=== PATIENT | female | born 1990 | race Caucasian/White ===

== ENCOUNTER 2016-11-09 22:05 | Emergency (ER) | payer BC ==
[2016-11-09] MEDS ORDERED: ONDANSETRON 4 MG TAB.RAPDIS PO ONE ×2 (22:15→22:37)
[2016-11-09 22:18] VITALS: BP 113/74
[2016-11-09] MEDS ORDERED: ONDANSETRON 4 MG TAB.RAPDIS ONE ×2 (22:18→22:39)
--- NOTE | 2016-11-09 22:21 | ERNOTE ---
Medical Problem HPI - Narrative Date of Service: 11/09/16 - General Chief Complaint: Nausea/Vomiting Time Seen by Provider: 11/09/16 22:15 Source: patient, RN notes reviewed - Immun/Allergies/Home Medications Immunizations: IMMUNIZATION HX Immunizations Up to Date Yes History of Influenza Vaccine No Hx Pneumococcal Vaccination No Allergies/Adverse Reactions: Allergies promethazine HCl [From Phenergan] Allergy (Severe, Verified 11/09/16 22:18) nausea, tightening of throat, decreased bp Home Medications: HOME MEDICATIONS Ondansetron HCl [Zofran] 4 - 8 mg PO Q4H PRN #20 tablet 11/09/16 [Last Taken Unknown] Pnv95/Iron Fum/Folic Acid [ Tablet] 1 each PO 11/09/16 [Last Taken Unknown] - History of Present History Narrative: This is a 26-year-old female who is at 24 weeks. She has had no hyperemesis gravidarum during this . The patient reports she has been having nausea and vomiting with mild epigastric discomfort for the last 2 hours. Of importance the patient's sister was recently with them. The sister was also recently with the patient's father. Father started having nausea vomiting and diarrhea approximately 12-24 hours ago. Sister does not have any symptoms that we are aware of at this time. Patient does not have any diarrhea. She says she has been unable to keep anything down for the last 2 hours, and is worried that her baby is going to have trouble. She has no other complaints such as exquisite tenderness, pain going over bumps, shortness of breath, chest pain, or any other complaints. Timing: constant Severity: moderate, severe Review of Systems - Review of Systems Constitutional: Present: no symptoms reported EYE: Present: no symptoms reported ENT: Present: no symptoms reported Respiratory: Present: no symptoms reported Cardiology: Present: no symptoms reported Gastrointestinal/Abdominal: Present: See HPI, nausea, vomiting Genitourinary: Present: no symptoms reported Musculoskeletal: Present: no symptoms reported Skin: Present: no symptoms reported Neurological: Present: no symptoms reported Psych: Present: no symptoms reported All Other Systems: All systems neg except as marked - Patient's Past Medical History Patient History - Medical: Other Patient History - Cardiac/Respiratory: Asthma Patient History - Cancer: No Hx of Cancer Patient History - Surgical Procedures: Other Patient History - Other: None - Social History Living Situations: spouse Abuse History: No History of abuse Psych History: No pertinent hx Smoking Status: Never smoker Alcohol Use: none Drug Use: none - Immunizations Immunizations Up to Date: Yes Hx Pneumococcal Vaccination: No History of Influenza Vaccine: No Physical Exam - Physical Exam General Appearance: Present: wd/wn, alert, no apparent distress Head Exam: Present: normal inspection, no evidence of injury Ears, Nose, Throat: Present: other - slightly dry membranes Neck: Present: normal inspection, nontender Respiratory: Present: no respiratory distress, normal breath sounds, no accessory muscle use, chest nontender, lungs clear Cardiovascular/Chest: Present: regular rate, rhythm, no murmur Gastrointestinal/Abdominal: Present: normal bowel sounds, nontender, nondistended, soft Back Exam: Present: normal inspection, normal range of motion, no CVA tenderness , no vertebral tenderness Extremity Exam: Present: normal inspection Neurological Exam: Present: alert, oriented, normal mood/affect Skin Exam: Present: normal color, warm/dry Lymphatic Exam: Present: no adenopathy ED Progress - Vital Signs Patient's Vital Signs:: I have reviewed the patient's vital signs. Vital Signs: Vital Signs 11/09/16 22:11 Temperature 36.0 C L Pulse Rate 103 H Respiratory 18 Rate Blood Pressure 113/74 O2 Sat by Pulse 97 Oximetry - Progress/Reassessment Chief Complaint: Nausea/Vomiting Plan - Plan Plan: The patient actually started having diarrhea shortly after her arrival here. She has gotten 8 mg of Zofran. She is keeping down small sips of fluids. I have counseled her to use frequent small amounts of fluid rather than large amounts. She has been made aware that her symptoms will likely continue for the next 12-24 hours. heart rate was 146 and steady. I've related to the patient that the fetus will receive enough fluid and that her body will suffer long before the fetus does. I discussed if she doesn't have urine output for 12 hours or if she is still having vomiting and diarrhea after 24 hours she should return. Certainly if she develops new worrisome symptoms such as fever or increased abdominal pain vaginal bleeding etc. she should return Departure - Departure Clinical Impression: Gastroenteritis Disposition: Home self-care Condition: Stable Instructions: Nausea, Adult Additional Instructions: As we have discussed, he will likely continue to have symptoms for up to 24 hours total. The nausea should gradually resolve over the next 6-10 hours. The diarrhea will take approximately 6-10 hours longer than that. Even take the prescribed Zofran to help with severe nausea and vomiting. He should have frequent small amounts of liquids. Clear liquids are the best. Certainly if you're continuing to have nausea and vomiting 24 hours after the start you should return to the ER. If you do not have any significant urine output for more than 12 hours she should return to the ER. Otherwise call your [facility] doctor and set up a follow-up appointment. Prescriptions: Ondansetron HCl [Zofran] 4 - 8 mg PO Q4H PRN #20 tablet PRN Reason: vomiting
== END 2016-11-09 23:35 | disposition home or self-care (01) ==
LOC: ER 22:05
DX: K52.9 Noninfective gastroenteritis and colitis, unspecified (principal); Z33.1 Pregnant state, incidental

== ENCOUNTER 2017-01-28 07:54 | Inpatient (IN) | payer BC ==
[2017-01-28] MEDS ORDERED: RINGER'S SOLUTION,LACTATED 1,000 ML IV ONE ×2 (09:30→10:18)
[2017-01-28] MEDS ORDERED: ceFAZolin SODIUM 1 GM VIAL IV ONE (09:35)
[2017-01-28] MEDS ORDERED: OXYTOCIN 20 UNITS in RINGER'S SOLUTION,LACTATED 1,000 ML IV ONE ×2 (09:45→10:45)
[2017-01-28 09:54] LABS: Hematocrit 35.5 % (37.0-47.0); Hemoglobin 12.3 gm/dL (12.5-16.0); Mean Cell Volume 86.4 fl (78-100); Mean Corpuscular Hemoglobin 29.9 pg (27-31); Mean Corpuscular Hgb Conc 34.6 g/dl (32-36); Mean Platelet Volume 11.3 fl (6.0-9.5); Neutrophil # 9.5 K/mm3 (1.3-6.0); Neutrophil % 63.3 % (42-75.0); Platelet Count 180 K/mm3 (150-450); Red Blood Count 4.11 M/mm3 (4.2-5.4); Red Cell Distribution Width 13.2 % (11.5-14.0); White Blood Count 15.1 K/mm3 (4.0-10.5)
[2017-01-28] MEDS ORDERED: ceFAZolin SODIUM/DEXTROSE,ISO 2 GM/50 ML BAG IV ONE (10:45)
[2017-01-28] MEDS ORDERED: diphenhydrAMINE HCL 50 MG/ML VIAL IV PRN (10:52)
[2017-01-28] MEDS ORDERED: ONDANSETRON HCL/PF 2 MG/ML VIAL IV PRN ×2 (10:52→11:42)
[2017-01-28] MEDS ORDERED: HYDROmorphone HCL 2 MG/ML VIAL IV PRN (10:52)
[2017-01-28] MEDS ORDERED: NALOXONE HCL 0.4 MG/ML VIAL IV PRN (10:52)
--- NOTE | 2017-01-28 10:57 | OR ---
Operative Report - Dictated Report Narrative: Indication: 26-year-old 1 para 0 at 35 5/7 weeks presented to office for routine visit after an ultrasound that morning revealed an 8 cm complex mass on the placenta near the umbilical cord. Patient was being hooked up for nonstress test in the office when heart tones were noted to be in the 80s and patient began having lower uterine tenderness vaginal bleeding associated with the deceleration. Status: Stat. called at 0924. Incision at 0936. at 0938. Pre Operative Diagnosis: 35 5/7 week intrauterine . 2 vessel cord. Placental abruption. Nonreassuring tracing Post Operative Diagnosis: Same. Procedure Preformed: Primary Low Transverse Section Surgeon: Paul Curran DO Dry Cell Tester: OR Staff Anesthesia: GENERAL ,TAP block Estimated Blood Loss: 1500 mL Urine Output: 50 mL Fluids Given: 2000 mL Drains: Esteban to gravity Surgical Complications: None Specimens: Placenta to pathology Findings: Female born at 0938 on 01/28/2016 with Apgars 7 and 8, weighing 2599 g in cephalic presentation. Normal uterus, tubes, ovaries. Large 10 cm clot attached to the uterus near the umbilicus. Technique: The patient was taken to the operating room and placed in dorsal supine position with a left lateral tilt. After adequate Gen. Anesthesia, esteban catheter insertion, and 2 g of Ancef given preoperatively, the abdominal cavity was entered via a modified Dick-Jones incision. A transverse incision was made in the lower uterine segment and extended laterally and upwardly with digital traction. Clear fluid was noted upon amniotomy. The was delivered easily and crying upon delivery. The cord was milked 4-5 times then clamped and cut. The was handed off to awaiting stiff leg operator. Cord gases were obtained. The placenta was allowed to deliver spontaneously. The uterus was cleared of clot and debris. Uterine incision was closed with 0 Vicryl using a running stitch. A second imbricating layer was placed. Excellent hemostasis was noted. Rolled laps were removed from the abdominal cavitiy. The peritoneum was closed with a running 3-0 Monocryl. The same suture was used to approximate the rectus and pyramidalis muscles. The fascia was closed with a running 0 Vicryl. The subcutaneous layer was closed with a running 3-0 Monocryl. The same suture was used to approximate the subdermal layer. The skin was closed with a running 4-0 Monocryl and Dermabond. Sponge, lap, needle, and instrument count were correct x 2. Disposition: The patient was transferred to post anesthesia care unit in good condition
--- NOTE | 2017-01-28 10:59 | OR ---
Anesthesia Procedure Note - Anesthesia Procedure Note Date of Service: 01/28/17 Narrative: Vital Signs - Last Taken Temp 36 C L 01/28/17 10:54 Pulse 56 L 01/28/17 10:54 Resp 20 01/28/17 10:54 BP 99/44 01/28/17 10:54 Pulse Ox 100 01/28/17 10:54 O2 Oxygen Delivery Method Room Air 01/28/17 10:58 ANESTHESIA PROCEDURE NOTE Date of Procedure: 01/28/2017. Time of procedure: 1045. Performed by: Tony Wynn CRNA Power Bender Operator: None. Preprocedure diagnosis: Stat . Post procedure diagnosis: Same. Procedure: Bilateral ultrasound-guided transversus abdominis plane block for postop analgesia. Indications: The patient is a 26 -year-old female post section. Findings: See below. Details of the procedure: ChloraPrep was used on the patient's abdomen and the procedure was performed under sterile technique. The right abdominal fascial layer between the internal oblique muscle and the transversus abdominis muscles was identified under ultrasound guidance. A 21-gauge 4 inch block needle was inserted under ultrasound guidance to the target fascial plane. 15 mL's of 0.5 % bupivacaine plus epinephrine 1:200,000 was injected after negative aspiration for blood. The needle was removed intact and the procedure was then repeated at the left side. No complications were noted. The images were retained in the hospital medical database . EBL: Minimal. Fluids: N/A. Specimen: N/A. Post procedure condition: The patient tolerated the procedure well. No complications were noted. Thank you for this consultation. Tony Wynn CRNA
[2017-01-28 11:28] LABS: Albumin * 2.4 gm/dl (3.4-5.0); Anion Gap 14.9 mmol/L (6.8-13.8); BUN/Creatinine Ratio 15.3 (9.0-21.6); Bilirubin, Total 0.1 mg/dL (0.0-1.1); Ca. Corrected For Albumin 8.9 mg/dL (8.4-10.2); Calcium * 7.9 mg/dL (7.9-10.9); Carbon Dioxide 20.8 mmol/L (24-32.6); Potassium 3.7 mmol/L (3.4-4.6); Total Protein 5.9 gm/dL (6.2-8.2)
[2017-01-28] MEDS ORDERED: DEXTROSE 5%-LACTATED RINGERS 1,000 ML IV PRN (11:42)
[2017-01-28] MEDS ORDERED: BISACODYL 10 MG SUPP.RECT RC PRN (11:42)
[2017-01-28] MEDS ORDERED: SENNOSIDES 8.6 MG TABLET PO PRN (11:42)
[2017-01-28] MEDS ORDERED: SIMETHICONE 80 MG TAB.CHEW PO PRN (11:42)
[2017-01-28] MEDS: oxyCODONE HCL/ACETAMINOPHEN 1 TAB TABLET PO PRN ×3 (12:34→21:07)
[2017-01-28] MEDS: IBUPROFEN 800 MG TABLET PO PRN ×2 (12:34→19:19)
[2017-01-28] MEDS ORDERED: RHO(D) IMMUNE GLOBULIN 300 MCG DISP.SYRIN IM ONE (13:18)
[2017-01-28] MEDS: ENOXAPARIN SODIUM 40 MG/0.4 ML SYRG SC SCH (21:07)
[2017-01-28] MEDS: DOCUSATE SODIUM 100 MG CAPSULE PO SCH (21:07)
[2017-01-29] MEDS: oxyCODONE HCL/ACETAMINOPHEN 1 TAB TABLET PO PRN ×6 (00:49→22:20)
[2017-01-29] MEDS: IBUPROFEN 800 MG TABLET PO PRN ×3 (02:08→18:33)
[2017-01-29] MEDS: DOCUSATE SODIUM 100 MG CAPSULE PO SCH ×2 (08:19→20:27)
[2017-01-29] MEDS: ENOXAPARIN SODIUM 40 MG/0.4 ML SYRG SC SCH (20:27)
--- NOTE | 2017-01-29 23:17 | PN ---
Subjective - Date and Time Seen Date: 01/29/17 Time: 23:14 - Seen at 0830 Subjective Narrative: Pain well controlled. Ambulating, urinating, eating without difficulty. No flatus yet Objective - Review of Systems Generalized/Overall Review: Reports: No Symptoms Reported EENTM: Reports: No Symptoms Reported Respiratory: Reports: No Symptoms Reported Cardiac: Reports: No Symptoms Reported Abdominal: Reports: Abdominal Pain - approriate Genitourinary Symptoms: Reports: No Symptoms Reported Musculoskeletal Complaints: Reports: No Symptoms Reported Neurological: Reports: No Symptoms Reported Skin: Reports: No Symptoms Reported Endocrine: Reports: No Symptoms Reported - Vitals Vitals: Last Vital Signs Temp 36.5 C 01/29/17 18:38 Pulse 76 01/29/17 18:38 Resp 18 01/29/17 18:38 BP 142/80 01/29/17 18:38 Pulse Ox 97 01/29/17 18:38 - Abnormal Lab Findings Abnormal Lab Findings: Abnormal Lab Results 01/28/17 Range/Units 09:45 Crossmatch See Detail - Exam Constitutional: Present: Alert, Oriented x3, Cooperative, No distress Respiratory: Present: no respiratory distress Cardiovascular/Chest: Present: normal peripheral pulses, regular rate, rhythm, edema - 1+ pitting edema Abdomen: Present: soft, no rebound tenderness, other - incision - clean, dry, intact /Rectal: Present: Exam deferred Extremity: Present: non-tender, no calf tenderness, lower extremity edema Skin Exam: Present: normal color, warm/dry, no cyanosis Neurologic: Present: normal mood/affect Appearance: Present: appropriate appearance, appropriate insight Eye contact: Present: cooperative, good eye contact Cauti Physician Documentation - Urinary Catheter Management Urethral (Mejia) Date of Insertion: 01/28/17 Time of Insertion: 09:30 Assessment/Plan - Problems/Diagnosis (1) Delivery by emergency section Problem: Acute Narrative: Routine PP care (2) Placenta abruption, delivered, current hospitalization Problem: Resolved Narrative: Hemodynamically stable. Observe for now.
[2017-01-30] MEDS: oxyCODONE HCL/ACETAMINOPHEN 1 TAB TABLET PO PRN ×4 (03:54→18:52)
[2017-01-30] MEDS: IBUPROFEN 800 MG TABLET PO PRN ×3 (03:55→17:01)
[2017-01-30] MEDS ORDERED: FLU VACC QS2017-18(6MOS UP)/PF 60 MCG/0.5 ML SYRINGE IM ONE (09:00)
[2017-01-30] MEDS: DOCUSATE SODIUM 100 MG CAPSULE PO SCH ×2 (09:55→21:41)
--- NOTE | 2017-01-30 16:27 | PN ---
Subjective - Date and Time Seen Date: 01/30/17 Time: 16:26 Objective - Vitals Vitals: Last Vital Signs Temp 36.9 C 01/30/17 08:02 Pulse 78 01/30/17 08:02 Resp 18 01/30/17 08:02 BP 136/79 01/30/17 08:02 Pulse Ox 99 01/30/17 08:02 Patient denies complaints. Ambulating well. Tolerating regular diet. Pain well controlled. Lochia wnl. Abdomen - soft, appropriately tender Incision - clean, dry, intact Uterus - firm, at umbilicus -2 No calf tenderness Impression: Post op day #2 s/p primary stat section for placental abruption with nonreassuring heart tracing. Gestational hypertension. Plan: Continue routine post-operative/ care Cauti Physician Documentation - Urinary Catheter Management Urethral (Mejia) Date of Insertion: 01/28/17 Time of Insertion: 09:30 Assessment/Plan - Problems/Diagnosis (1) Delivery by emergency section Problem: Acute (2) Placenta abruption, delivered, current hospitalization Problem: Resolved
[2017-01-30] MEDS: ENOXAPARIN SODIUM 40 MG/0.4 ML SYRG SC SCH (21:41)
[2017-01-31] MEDS: IBUPROFEN 800 MG TABLET PO PRN ×2 (02:28→08:36)
[2017-01-31] MEDS: oxyCODONE HCL/ACETAMINOPHEN 1 TAB TABLET PO PRN ×3 (02:29→12:55)
[2017-01-31 07:08] VITALS: BP 136/80
--- NOTE | 2017-01-31 08:40 | PN ---
Subjective - Date and Time Seen Date: 01/31/17 Time: 08:38 Objective - Vitals Vitals: Last Vital Signs Temp 36.8 C 01/31/17 07:07 Pulse 64 01/31/17 07:07 Resp 16 01/31/17 07:07 BP 136/80 01/31/17 07:07 Pulse Ox 99 01/31/17 07:07 Patient denies complaints. Ambulating without difficulty. Tolerating regular diet. Pain well controlled. Lochia wnl. Abdomen - soft, appropriately tender Incision - clean, dry, intact Uterus - firm, at umbilicus -3 No calf tenderness Impression: Post op day #3 s/p primary stat section. Placental abruption. Gestational hypertension-resolved. Plan: Routine discharge instructions Cauti Physician Documentation - Urinary Catheter Management Urethral (Mejia) Date of Insertion: 01/28/17 Time of Insertion: 09:30 Assessment/Plan - Problems/Diagnosis (1) Delivery by emergency section Problem: Acute (2) Placenta abruption, delivered, current hospitalization Problem: Resolved
[2017-01-31] MEDS: DOCUSATE SODIUM 100 MG CAPSULE PO SCH (12:55)
== END 2017-01-31 14:45 | disposition home or self-care (01) | DRG 766 ==
LOC: RAD 07:54 → OB 09:41
PROVIDERS: ADMIT Obstetrics & Gynecology; ATTEND Obstetrics & Gynecology
PROC: 10D00Z1 Extraction of Products of Conception, Low, Open Approach (ICD-10-PCS; principal; 2017-01-28 10:00)
DX: O45.93 Premature separation of placenta, unspecified, third trimester (principal); O76 Abnormality in fetal heart rate and rhythm complicating labor and delivery; O13.4 Gestational [pregnancy-induced] hypertension without significant proteinuria, complicating childbirth; Z3A.36 36 weeks gestation of pregnancy; Z37.0 Single live birth; Z23 Encounter for immunization
CPT/HCPCS: 36415; 59025; 59510; 76816; 80053; 85025; 85460; 86850; 86870; 86900; 88307; 90686; G0008; J2405; J2790

== ENCOUNTER 2018-12-10 04:58 | Inpatient (IN) ==
[2018-12-10] MEDS ORDERED: RINGER'S SOLUTION,LACTATED 1,000 ML IV PRN ×2 (05:10)
[2018-12-10] MEDS ORDERED: OXYTOCIN 20 UNITS in RINGER'S SOLUTION,LACTATED 1,000 ML IV ONE ×2 (05:10→09:03)
[2018-12-10] MEDS ORDERED: ceFAZolin SODIUM/DEXTROSE,ISO 2 GM/50 ML BAG IV ONE (05:10)
[2018-12-10 05:25] LABS: Hematocrit 36.5 % (37.0-47.0); Mean Cell Volume 86.5 fl (78-100); Mean Corpuscular Hemoglobin 28.4 pg (27-31); Mean Corpuscular Hgb Conc 32.9 g/dl (32-36); Mean Platelet Volume 11.2 fl (8-12.5); Neutrophil # 5.9 K/mm3 (1.3-6.0); Neutrophil % 68.1 % (42-75.0); Platelet Count 197 K/mm3 (150-450); Red Blood Count 4.22 M/mm3 (4.2-5.4); Red Cell Distribution Width 14.5 % (11.5-14.0); White Blood Count 8.6 K/mm3 (4.0-10.5)
[2018-12-10 07:29] LABS: Cocaine Ur Negative (NEGATIVE); Urine Barbiturate Negative (NEGATIVE); Urine Benzodiazepines Negative (NEGATIVE); Urine Opiates Negative (NEGATIVE); Urine PCP Negative (NEGATIVE); Urine THC Negative (NEGATIVE)
--- NOTE | 2018-12-10 07:32 | ANES ---
Anesthesia Pre Procedure Eval HOME MEDICATIONS Vits96/Iron Fum/Folic [ S] 1 tab PO DAILY 11/10/18 [Last Taken Unknown] Allergies/Adverse Reactions: Allergies Allergy/AdvReac Type Severity Reaction Status Date / Time promethazine HCl Allergy Severe nausea, Verified 12/08/18 15:32 [From Phenergan] tightening of throat, decreased bp - Planned Procedure Planned Procedure: Repeat , poss. Abdominal Scar Revision Medication List Reviewed:: Yes Allergies Verified: Yes Medical History (Updated 11/10/18 @ 12:39 by Yaron Curran DO) Chronic eczema (Chronic) History of placental abruption (Chronic) , spontaneous Onset Date: 02/01/16 Abruptio placenta Onset Date: 01/28/17 delivered @ 35 wks Acne Onset Date: Unknown Asthma, exercise induced Onset Date: Unknown [employer] Buckle fracture of distal end of right radius Onset Date: Unknown right in 3rd grade Eczema Onset Date: Unknown Menorrhagia Onset Date: 02/08/15 Premature delivery Onset Date: 01/28/17 @ 35 wks-placental abruption Steele teeth extracted Onset Date: 2009 Surgical History (Updated 12/08/18 @ 15:48 by Miri Ngo MD) Previous section (Chronic) Proceed with repeat delivery at 39 weeks. SROM and labor precautions. H/O section Onset Date: 01/28/17 STAT d/t placental abruption, non reassuring tracing. H/O colonoscopy Onset Date: 05/17/15 Tinguely-negative. Recheck 5 yrs. Family History (Updated 12/31/17 @ 07:09 by Carolina Vazquez) Mother Hypertension Ovarian cyst Father Hypertension Brother Cancer cancerous colon polyp DVT (deep venous thrombosis) Juvenile glaucoma Grandfather Diabetes Cancer prostate Grandfather Diabetes Cancer prostate Grandmother Cancer leukemia Hypertension Hypercholesteremia Osteoporosis Grandmother Cancer colon Hypertension DVT (deep venous thrombosis) - Family Anesthesia History Family History:: no untoward family reactions to anesthesia - Airway/Neck/Teeth Within Normal Limits:: Yes Teeth Condition: intact Neck Exam: full range of motion Mallampatti Score: 2 Thyromental (T-M) distance: > 6 cm Mandibulo Hyoid distance: > 3 cm - Respiratory Respiratory Physical: lungs clear Smoking Status: Never smoker Sleep Apnea currently treated: No Sleep Apnea by current assessment: No - Cardiovascular Tolerate Activity: Good Heart Sounds: S1 & S2, Regular - Anesthesia Assessment and Plan ASA Class: PS, II Anesthesia Type Plan: Spinal - bilat tap block
[2018-12-10] MEDS ORDERED: SENNOSIDES 8.6 MG TABLET PO PRN (09:03)
[2018-12-10] MEDS ORDERED: ONDANSETRON HCL/PF 2 MG/ML VIAL IV PRN (09:03)
[2018-12-10] MEDS ORDERED: KETOROLAC TROMETHAMINE 30 MG/ML VIAL IV PRN (09:03)
[2018-12-10] MEDS ORDERED: BISACODYL 10 MG SUPP.RECT RC PRN (09:03)
[2018-12-10] MEDS ORDERED: HYDROcodone/ACETAMINOPHEN 1 EACH TABLET PO PRN (09:03)
[2018-12-10] MEDS ORDERED: SIMETHICONE 80 MG TAB.CHEW PO PRN (09:03)
[2018-12-10] MEDS ORDERED: diphenhydrAMINE HCL 25 MG CAPSULE PO PRN (09:03)
--- NOTE | 2018-12-10 09:26 | ANES ---
Post Anesthesia Discharge - Transfer of Care Transfer of Care handoff given to nurse: Yes - Discharge from PACU Discharge from PACU when meets criteria: Yes
--- NOTE | 2018-12-10 09:34 | OR ---
Operative Report - Dictated Report Narrative: Date of delivery: 12/10/2018 Time of delivery: 813 Gender: male APGARS: 8/9 weight: 3926 grams Preoperative diagnosis: IUP @ 39w 0d, history of delivery Postoperative diagnosis: same Procedure: Repeat delivery Surgeon: Dr. Ngo Anesthesia: Spinal Anesthesiologist: Missael Zavala CRNA Description of the procedure: The patient was taken to the operating room where spinal anesthesia was induced. She was then prepped and draped in the lithotomy position in the standard surgical fashion. Attention was then turned to the abdominal scar. It appeared hypertrophic in some areas and with keloid formation in other areas. A scar revision was p erformed in the usual fashion. A segment of 19 cm of skin and scar was removed. The incision was carried through the subcutaneous tissue. The fascia was incised in the midline. The fascial incision was extended sharply. Bleeding was noted and it was controlled but there was quite a bit of bleeding. The fascia was grasped with Antonella clamps and dissected from the underlying rectus muscles. The rectus muscles were in the midline sharply due to scar tissue formation. The peritoneum was entered bluntly with good visualization of bowel and bladder. An Sánchez retractor was placed in the abdomen. The uterus was incised in the lower segment in the transverse fashion. The head was delivered. The rest of the infant was delivered atraumatically. The cord was clamped and cut and the infant was handed off to the attending pediatric staff. Cord blood was collected. The placenta was delivered by expression and appeared intact. The uterus was cleared of all clots and debris. The uterine incision was closed with 0-vicryl in a running, locking fashion. The uterine incision was inspected and it was hemostatic. The Sánchez retractor was removed from the abdomen. The fascia was inspected for hemostasis as were the rectus muscles. Several areas were made hemostatic. The fascia was closed with 1-0 vicryl. The subcutaneous tissue was copiously irrigated. The subcutaneous tissue space was closed with 2-0 vicryl. A second layer was placed as well. Additional hemostasis of the subcutaneous tissue was obtained with electrocautery. The skin was closed with 3-0 monocryl on a Buddy needle. [place] was placed over the incision. A pressure dressing was applied for additional hemostasis. All sponge, lap, and needle counts were correct. The patient tolerated the procedure well. She was transferred to the recovery room in stable condition. EBL: 1000 mL Complications: none Specimens: none History for MU Definition: * The number of deliveries resulting in a live the patient experienced prior to current hospitalization * The previous delivery of live twins or any live multiple gestation is considered one live event. *If primagravida or nulliparous is documented select zero for the number of previous live births. Live Events: 1
[2018-12-10 09:41] LABS: Albumin * 2.6 gm/dl (3.4-5.0); Anion Gap 15.7 mmol/L (6.8-13.8); BUN/Creatinine Ratio 9.5 (9.0-21.6); Bilirubin, Total 0.2 mg/dL (0.0-1.1); Ca. Corrected For Albumin 9.3 mg/dL (8.4-10.2); Calcium * 8.5 mg/dL (7.9-10.9); Carbon Dioxide 20.3 mmol/L (24-32.6); Total Protein 5.6 gm/dL (6.2-8.2)
[2018-12-10] MEDS: IBUPROFEN 800 MG TABLET PO PRN (10:00)
[2018-12-10] MEDS: HYDROcodone/ACETAMINOPHEN 1 EACH TABLET PO PRN ×5 (10:00→21:49)
--- NOTE | 2018-12-10 10:01 | ANES ---
Post Anesthesia Assessment - Vital Signs Vitals: Last Vital Signs Temp 36.2 C 12/10/18 09:40 Pulse 62 12/10/18 09:40 Resp 16 12/10/18 09:40 BP 139/76 12/10/18 09:40 Pulse Ox 100 12/10/18 09:40 Airway Patency: Normal - Mental Status Level Of Consciousness: Awake - Pain Level Pain Score: 2 - N/V Assessment Nausea/Vomiting Presence: None Dehydration:: No
--- NOTE | 2018-12-10 10:06 | ANES ---
Anesthesia Procedure Note Procedure Note: ANESTHESIA PROCEDURE NOTE Date of procedure: 12/10/2018. Time of procedure: 09 00. Performed by: Missael Zavala CRNA Child Psychometrist: Sue Ulrich RN . Preprocedure diagnosis: Status post section. Desire for postoperative analgesia. Post procedure diagnosis: Same. Procedure: Ultrasound-guided bilateral tap block Indications: Postoperative analgesia. Findings: Patient is brought to the PACU and placed in a supine position. Patient's lower right abdominal wall was prepped with ChloraPrep. Ultrasound was utilized to identify the fascial layer between the internal oblique and trans-abdominus muscles. A 20-gauge 4 inch regional block needle was advanced under ultrasound guidance until tip of needle was positioned just distal to fascial layer. 20 mL of 0.25% Marcaine with epinephrine 1-200 was injected with adequate spread of local anesthesia noted. Regional block needle was removed intact. Procedure was then repeated on patient's left side. A total of 40 mL of 0.25% Marcaine with epinephrine 1-200,000 was given. EBL: Minimal. Fluids: N/A. Specimen: N/A. Post procedure condition: The patient tolerated the procedure well. No complications were noted. Thank you for this consultation Missael Zavala CRNA
[2018-12-10] MEDS ORDERED: RHO(D) IMMUNE GLOBULIN 1,500 UNIT SYRINGE IM ONE ×2 (15:59→20:45)
[2018-12-10] MEDS: DOCUSATE SODIUM 100 MG CAPSULE PO SCH (20:29)
[2018-12-11] MEDS: HYDROcodone/ACETAMINOPHEN 1 EACH TABLET PO PRN ×4 (01:26→17:52)
[2018-12-11] MEDS: IBUPROFEN 800 MG TABLET PO PRN ×3 (01:26→17:52)
[2018-12-11 05:39] LABS: Hematocrit 31.7 % (37.0-47.0); Hemoglobin 10.2 gm/dL (12.5-16.0); Mean Cell Volume 88.5 fl (78-100); Mean Corpuscular Hemoglobin 28.5 pg (27-31); Mean Corpuscular Hgb Conc 32.2 g/dl (32-36); Mean Platelet Volume 11.1 fl (8-12.5); Neutrophil # 6.3 K/mm3 (1.3-6.0); Neutrophil % 73.8 % (42-75.0); Platelet Count 142 K/mm3 (150-450); Red Blood Count 3.58 M/mm3 (4.2-5.4); Red Cell Distribution Width 14.7 % (11.5-14.0); White Blood Count 8.5 K/mm3 (4.0-10.5)
--- NOTE | 2018-12-11 07:55 | PN ---
Subjective - Date and Time Seen Date: 12/11/18 Time: 07:53 Subjective Narrative: Patient without complaints Objective Objective Narrative: See vital signs - Review of Systems Generalized/Overall Review: Reports: No Symptoms Reported Misc: All systems neg except as marked - Vitals Vitals: Last Vital Signs Temp 36.5 C 12/11/18 06:54 Pulse 68 12/11/18 06:54 Resp 18 12/11/18 06:54 BP 121/88 12/11/18 06:54 Pulse Ox 98 12/11/18 06:54 - Abnormal Lab Findings Abnormal Lab Findings: Abnormal Lab Results 12/10/18 12/11/18 Range/Units Unknown 05:35 RBC 3.58 L (4.2-5.4) M/mm3 Hgb 10.2 L (12.5-16.0) gm/dL Hct 31.7 L (37.0-47.0) % RDW 14.7 H (11.5-14.0) % Plt Count 142 L (150-450) K/mm3 Immature Gran % (Auto) 0.80 H (0.001-0.429) % Immature Gran # (Auto) 0.07 H (0.000-0.0310) K/mm3 Lymphocytes % 15.2 L (20-51) % Neutrophils # 6.3 H (1.3-6.0) K/mm3 Lymphocytes # 1.29 L (1.5-3.5) k/mm3 Carbon Dioxide 20.3 L (24-32.6) mmol/L Anion Gap 15.7 H (6.8-13.8) mmol/L ALT 13 L (19-67) U/L Alkaline Phosphatase 182 H (50-170) U/L Total Protein 5.6 L (6.2-8.2) gm/dL Albumin 2.6 L (3.4-5.0) gm/dl - Exam Constitutional: Present: Alert, Oriented x3, Cooperative, No distress Abdomen: Present: soft, nontender, nondistended - dressing c/d/i Extremity: Present: non-tender, no calf tenderness Skin Exam: Present: normal color, warm/dry, no cyanosis Appearance: Present: appropriate appearance Eye contact: Present: cooperative Thoughts: Present: normal thought pattern Cauti Physician Documentation - Urinary Catheter Management Urethral (Mejia) Urethral Indwelling: No Date of Insertion: 12/10/18 Time of Insertion: 08:00 Date of Removal: 12/10/18 Time of Removal: 20:49 Assessment/Plan Plan Narrative: POD 1 s/p repeat delivery Doing well Discharge POD 3
[2018-12-11] MEDS: DOCUSATE SODIUM 100 MG CAPSULE PO SCH (09:05)
[2018-12-12] MEDS: DOCUSATE SODIUM 100 MG CAPSULE PO SCH ×4 (00:07→22:01)
[2018-12-12] MEDS: HYDROcodone/ACETAMINOPHEN 1 EACH TABLET PO PRN ×4 (00:07→22:01)
[2018-12-12] MEDS: IBUPROFEN 800 MG TABLET PO PRN ×4 (00:07→22:01)
--- NOTE | 2018-12-12 07:45 | PN ---
Subjective - Date and Time Seen Date: 12/12/18 Time: 07:43 Subjective Narrative: Patient without complaints Objective Objective Narrative: See vital signs - Review of Systems Generalized/Overall Review: Reports: No Symptoms Reported Misc: All systems neg except as marked - Vitals Vitals: Last Vital Signs Temp 36.8 C 12/11/18 16:15 Pulse 76 12/11/18 20:15 Resp 16 12/11/18 20:15 BP 126/83 12/11/18 20:15 Pulse Ox 98 12/11/18 20:15 - Exam Constitutional: Present: Alert, Oriented x3, Cooperative, No distress Abdomen: Present: soft, nontender, nondistended - incision c/d/i Extremity: Present: non-tender, no calf tenderness Skin Exam: Present: normal color, warm/dry, no cyanosis Appearance: Present: appropriate appearance Eye contact: Present: cooperative Thoughts: Present: normal thought pattern Cauti Physician Documentation - Urinary Catheter Management Urethral (Mejia) Urethral Indwelling: No Date of Insertion: 12/10/18 Time of Insertion: 08:00 Date of Removal: 12/10/18 Time of Removal: 20:49 Assessment/Plan Plan Narrative: POD 2 s/p delivery Doing well Discharge tomorrow
[2018-12-12 16:27] LABS: Hematocrit 35.4 % (37.0-47.0); Hemoglobin 11.4 gm/dL (12.5-16.0); Mean Cell Volume 89.2 fl (78-100); Mean Corpuscular Hemoglobin 28.7 pg (27-31); Mean Corpuscular Hgb Conc 32.2 g/dl (32-36); Mean Platelet Volume 10.6 fl (8-12.5); Neutrophil # 5.1 K/mm3 (1.3-6.0); Neutrophil % 74.2 % (42-75.0); Platelet Count 179 K/mm3 (150-450); Red Blood Count 3.97 M/mm3 (4.2-5.4); Red Cell Distribution Width 14.9 % (11.5-14.0); White Blood Count 6.9 K/mm3 (4.0-10.5)
[2018-12-12 16:40] LABS: Albumin * 2.2 gm/dl (3.4-5.0); Anion Gap 11.2 mmol/L (6.8-13.8); Bilirubin, Total 0.2 mg/dL (0.0-1.1); Ca. Corrected For Albumin 9.2 mg/dL (8.4-10.2); Calcium * 8.1 mg/dL (7.9-10.9); Carbon Dioxide 26.2 mmol/L (24-32.6); Potassium 3.4 mmol/L (3.4-4.6); Total Protein 5.8 gm/dL (6.2-8.2)
[2018-12-12 17:26] LABS: Random Urine Total Protein Less than 6.0 mg/dL (0-12)
[2018-12-12] MEDS ORDERED: HYDROCORTISONE 30 APPL TUBE TP PRN (21:23)
[2018-12-13] MEDS: IBUPROFEN 800 MG TABLET PO PRN (06:01)
--- NOTE | 2018-12-13 06:16 | PN ---
Subjective - Date and Time Seen Date: 12/13/18 Time: 06:14 Subjective Narrative: Patient without complaints Objective Objective Narrative: See vital signs - Review of Systems Generalized/Overall Review: Reports: No Symptoms Reported Misc: All systems neg except as marked - Vitals Vitals: Last Vital Signs Temp 36.8 C 12/12/18 15:07 Pulse 86 12/13/18 02:22 Resp 16 12/13/18 02:22 BP 126/73 12/13/18 02:22 Pulse Ox 99 12/13/18 02:22 - Abnormal Lab Findings Abnormal Lab Findings: Abnormal Lab Results 12/12/18 12/12/18 12/12/18 Range/Units 16:20 16:20 17:10 RBC 3.97 L (4.2-5.4) M/mm3 Hgb 11.4 L (12.5-16.0) gm/dL Hct 35.4 L (37.0-47.0) % RDW 14.9 H (11.5-14.0) % Immature Gran % (Auto) 1.00 H (0.001-0.429) % Immature Gran # (Auto) 0.07 H (0.000-0.0310) K/mm3 Lymphocytes % 14.1 L (20-51) % Lymphocytes # 0.97 L (1.5-3.5) k/mm3 Chloride 107 H (97-106) mmol/L ALT 15 L (19-67) U/L Total Protein 5.8 L (6.2-8.2) gm/dL Albumin 2.2 L (3.4-5.0) gm/dl Ur Random Creatinine 15.6 L (60-200) mg/dL U [place] Prot/Creat Ratio 385 H (0-199) mg/gm - Exam Constitutional: Present: Alert, Oriented x3, Cooperative, No distress Abdomen: Present: soft, nontender, nondistended - incision c/d/i Extremity: Present: non-tender, no calf tenderness Skin Exam: Present: normal color, warm/dry, no cyanosis Appearance: Present: appropriate appearance Eye contact: Present: cooperative Thoughts: Present: normal thought pattern Cauti Physician Documentation - Urinary Catheter Management Urethral (Mejia) Urethral Indwelling: No Date of Insertion: 12/10/18 Time of Insertion: 08:00 Date of Removal: 12/10/18 Time of Removal: 20:49 Assessment/Plan Plan Narrative: POD 3 s/p repeat delivery The patient had elevated BPs . UP:CR consistent with pre- eclampsia. Patient asymptomatic. Patient given severe pre-eclampsia precautions. BP check in the office in 1 week Pt doing well Discharge today
[2018-12-13 08:13] VITALS: BP 127/74
== END 2018-12-13 11:00 | disposition home or self-care (01) | DRG 788 ==
LOC: MS 04:58 → OB 12-12 18:21
PROVIDERS: ADMIT Obstetrics & Gynecology; ATTEND Obstetrics & Gynecology
CPT/HCPCS: 36415; 59025; 80053; 80307; 82570; 84155; 84156; 85025; 85460; 86850; 86870; J2790

== ENCOUNTER 2020-01-19 03:40 | Observation (INO) ==
[2020-01-19] MEDS ORDERED: AZITHROMYCIN 250 MG TABLET PO ONE (04:24)
[2020-01-19] MEDS ORDERED: AMPICILLIN SODIUM 2,000 MG in NORMAL SALINE 100 ML IV ONE (04:25)
[2020-01-19] MEDS ORDERED: BETAMETHASONE ACETATE,SOD PHOS 6 MG/ML VIAL IM ONE (04:26)
--- NOTE | 2020-01-19 04:43 | HP ---
Chief Complaint - Chief Complaint Date of Service: 01/19/20 Time of Service: 04:13 Chief Complaint: leakage of fluid History of Present Illness: 29 year old at 22w 6d who presents to labor and delivery after having 3 big gushes of fluid. The first big gush of fluid was at 0130. She denies any cramping, contractions or vaginal bleeding. She has not had consistent movement yet. Denies fever, chills, nausea, vomiting, and diarrhea. Medical History (Last Reviewed 01/19/20 @ 04:27 by Miri Ngo MD) Chronic eczema (Chronic) History of placental abruption (Chronic) , spontaneous Onset Date: 02/01/16 Abruptio placenta Onset Date: 01/28/17 delivered @ 35 wks Acne Onset Date: Unknown Asthma, exercise induced Onset Date: Unknown Elementary School Buckle fracture of distal end of right radius Onset Date: Unknown right in 3rd grade Eczema Onset Date: Unknown Menorrhagia Onset Date: 02/08/15 Premature delivery Onset Date: 01/28/17 @ 35 wks-placental abruption Surgical History: Surgical History (Last Reviewed 01/19/20 @ 04:27 by Miri Ngo MD) Previous section (Chronic) x2 H/O section Onset Date: 01/28/17 STAT d/t placental abruption, non reassuring tracing. H/O colonoscopy Onset Date: 05/17/15 Tinguely-negative. Recheck 5 yrs. [place] teeth extracted Onset Date: 2009 delivery delivered Onset Date: ~12/10/18 repeat Family History: Family History (Last Reviewed 01/19/20 @ 04:27 by Miri Ngo MD) Mother Hypertension Ovarian cyst Father Hypertension Brother Cancer cancerous colon polyp DVT (deep venous thrombosis) Juvenile glaucoma Grandfather Diabetes Cancer prostate Grandfather Diabetes Cancer prostate Grandmother Cancer leukemia Hypertension Hypercholesteremia Osteoporosis Grandmother Cancer colon Hypertension DVT (deep venous thrombosis) Social History: (Last Reviewed 01/19/20 @ 04:27 by Miri Ngo MD) Social History: adopted: No residential: No Marital status: household members: spouse, children number of children: 2 current occupational status: employed current occupation: Teacher current occupational exposures/hazards: No Highest education level completed: Master's degree Sexually Active: Yes Service: No Tobacco: Smoking Status: Never smoker Alcohol: alcohol intake: current alcohol intake frequency: a few times a month details: No alcohol since +UPT Substance Use: substance use type: does not use Dietary Habits: caffeine: Yes caffeine comment: 2/day Type: tea, coffee Exercise: Physical activity type: yoga frequency: 3-4 times per week Jenny/Hoahaoism: agree to transfusion: Yes Review Of Systems (GEN) - Review of Systems EENTM: Present: No Symptoms Reported Respiratory: Present: No Symptoms Reported Cardiac: Present: No Symptoms Reported Abdominal: Present: No Symptoms Reported Genitourinary: Present: Other - loss of fluid Musculoskeletal: Present: No Symptoms Reported Neurological: Present: No Symptoms Reported Skin: Present: No Symptoms Reported Endocrine: Present: No Symptoms Reported Immunizations: IMMUNIZATION HX Immunizations Up to Date Yes History of Influenza Vaccine Yes Hx Pneumococcal Vaccination No Allergies/Adverse Reactions: Allergies Allergy/AdvReac Type Severity Reaction Status Date / Time promethazine HCl Allergy Severe nausea, Verified 01/19/20 03:34 [From Phenergan] tightening of throat, decreased bp Home Medications: HOME MEDICATIONS Vits96/Iron Fum/Folic [ S] 1 tab PO DAILY 11/10/18 [Last Taken 01/17/20] Exam - Exam Vital Signs: 115/67 73 98% 36.4 Cel[place] 16 Constitutional: Present: Alert, Oriented x3, Cooperative, No distress ENT Exam: Present: hearing grossly normal Eye Exam: bilateral eye: normal inspection Neck: Present: normal inspection Back Exam: Present: normal inspection Breasts: Present: Exam deferred Respiratory: Present: lungs clear, normal breath sounds, no respiratory distress Cardiovascular/Chest: Present: regular rate, rhythm Abdomen: Present: soft, nontender, nondistended, no rebound tenderness Extremity: Present: non-tender, no calf tenderness Skin Exam: Present: normal color, warm/dry, no cyanosis Neurologic: Present: alert, normal mood/affect, oriented x 3 Appearance: Present: appropriate appearance, appropriate insight, neat, no memory impairment Eye contact: Present: cooperative, good eye contact, normal speech Thoughts: Present: normal thought pattern Assessment/Plan - Narrative Narrative: 29 year old at 22w 6d 1. PPROM, not in labor: a dose of betamethasone was administered. Zithromax 1 gram PO given. Ampicillin 2 grams IV every 6 hours. Bedside ultrasound shows breech presentation. GBS collected today. Patient transferred to [facility] to a higher level of care. NST is reactive, normal baseline, no decelerations, no contractions - Assessment/Plan (1) premature rupture of membranes (PPROM) with unknown onset of labor Problem: Acute (2) 22 weeks gestation of Problem: Acute (3) Previous section Problem: Chronic (4) History of placental abruption Problem: Chronic (5) Breech presentation Problem: Acute Qualifiers: Fetus number: single or unspecified fetus Qualified Code(s): O32.1XX0 - Maternal care for breech presentation, not applicable or unspecified
[2020-01-19 06:04] VITALS: BP 122/80
== END 2020-01-19 05:35 | disposition short-term general hospital (02) ==
LOC: INTOOBSV 03:41 → OB 03:41
PROVIDERS: ADMIT Obstetrics & Gynecology; ATTEND Obstetrics & Gynecology
DX: Z3A.22 22 weeks gestation of pregnancy; O42.912 Preterm premature rupture of membranes, unspecified as to length of time between rupture and onset of labor, second trimester